=== PATIENT | female | born 1970 ===

== ENCOUNTER 2017-03-03 13:59 | Emergency (ER) | payer MEDICAID ==
[2017-03-03 14:09] VITALS: BP 145/64; PULSE 90; RESP 16; TEMP 98.5; O2SAT 100
[2017-03-03] MEDS ORDERED: Oxycodone/Acetaminophen 5/325 mg Tab PO STA (14:21)
--- NOTE | 2017-03-03 14:40 | ED PDOC ---
HPI: Dental Pain/Injury Time Seen by Provider: 03/03/17 14:15 Chief Complaint (Nursing): Dental Pain Chief Complaint (Provider): Dental Pain History Per: Patient History/Exam Limitations: no limitations Onset/Duration Of Symptoms: Days (x 2-3 months) Current Symptoms Are (Timing): Still Present Additional Complaint(s): Tati Glass is a 46-year-old female who presents to the emergency department complaining of right lower dental pain, ongoing for the past few months but worsened recently. Patient attributes her pain to a right lower molar that is decaying. Patient denies fever and chills. She has an appointment next month with an oral surgeon to remove the tooth. Patient has been taking Motrin without relief. PMD: Jodi Chandler MD Past Medical History Reviewed: Historical Data, Nursing Documentation, Vital Signs Vital Signs: Last Vital Signs Temp 98.5 F 03/03/17 14:06 Pulse 90 03/03/17 14:06 Resp 16 03/03/17 14:06 BP 145/64 03/03/17 14:06 Pulse Ox 100 03/03/17 14:06 - Medical History PMH: Depression, HTN (not on meds), Malignancy (ovarian CA) - Surgical History Surgical History: - Family History Family History: States: Unknown Family Hx - Immunization History Hx Tetanus Toxoid Vaccination: No Hx Influenza Vaccination: No Hx Pneumococcal Vaccination: No - Home Medications Home Medications: Ambulatory Orders Medication Instructions Recorded Ibuprofen [Advil] 800 mg PO 03/15/13 Acetaminophen with Codeine 2 tab PO Q4H PRN #22 tab 06/16/15 [Tylenol with Codeine No. 3 300 mg-30 mg] Ibuprofen 600 mg PO Q8H PRN #60 tab 06/16/15 Ondansetron [Zofran] 4 mg PO Q8H PRN #30 tab 06/16/15 Clindamycin [Cleocin] 300 mg PO TID #30 cap 09/12/15 oxyCODONE/Acetaminophen [Percocet 1 ea PO Q6H PRN #12 tab 09/12/15 5/325 mg Tab] Acetaminophen with Codeine 1 tab PO Q6 #6 tab 09/24/15 [Acetaminophen and Codeine Phosphate 300 mg-30] Amoxicillin/Clavulanate [Augmentin 1 tab PO Q12 #13 tab 03/06/16 875 MG-125 MG] Oxycodone HCl/Acetaminophen 1 tab PO Q6 PRN #10 tab 03/06/16 [Percocet 325 mg-5 mg] Penicillin VK [Pen-Vee K] 500 mg PO BID #20 tab 04/30/16 oxyCODONE/Acetaminophen [Percocet 1 ea PO Q8H PRN #10 tab 04/30/16 5/325 mg Tab] Naproxen [Naprosyn] 500 mg PO BID PRN #30 tab 06/30/16 Ondansetron ODT [Zofran ODT] 4 mg PO TID #21 odt 06/30/16 Amoxicillin/Clavulanate [Augmentin 1 tab PO BID #20 tab 03/03/17 875 MG-125 MG] oxyCODONE/Acetaminophen [Percocet 1 ea PO Q6H PRN #15 tab 03/03/17 5/325 mg Tab] - Allergies Allergies/Adverse Reactions: Allergies Allergy/AdvReac Type Severity Reaction Status Date / Time No Known Allergies Allergy Verified 03/03/17 14:06 Review of Systems ROS Statement: Except As Marked, All Systems Reviewed And Found Negative Constitutional: Negative for: Fever, Chills ENT: Positive for: Mouth Pain (Right lower dental pain) Physical Exam - Reviewed Nursing Documentation Reviewed: Yes Vital Signs Reviewed: Yes - Physical Exam Appears: Positive for: Non-toxic, No Acute Distress Head Exam: Positive for: ATRAUMATIC, NORMAL INSPECTION, NORMOCEPHALIC Skin: Positive for: Normal Color, Warm, Dry Eye Exam: Positive for: Normal appearance ENT: Positive for: Other (Gums normal. No abscess formation. Partial eruption of left lower wisdom tooth with moderate to severe decay) Neck: Positive for: Normal, Painless ROM, Supple Back: Positive for: Normal Inspection. Negative for: Vertebral Tenderness Extremity: Positive for: Normal ROM. Negative for: Deformity Neurologic/Psych: Positive for: Alert, Oriented - ECG O2 Sat by Pulse Oximetry: 100 (RA) Pulse Ox Interpretation: Normal Medical Decision Making Medical Decision Making: Time: 14:21 Initial Impression: Dental pain Initial Plan: --Oxycodone [5/325 mg] 1 tab PO Scribe Attestation: Documented by Priya Osman, acting as a scribe for Pastora Huber PA-C Provider Scribe Attestation: All medical record entries made by the Scribe were at my direction and personally dictated by me. I have reviewed the chart and agree that the record accurately reflects my personal performance of the history, physical exam, medical decision making, and the department course for this patient. I have also personally directed, reviewed, and agree with the discharge instructions and disposition. Disposition - Clinical Impression Clinical Impression: Dental caries - Disposition Disposition Time: 14:58 Condition: STABLE Prescriptions: Amoxicillin/Clavulanate [Augmentin 875 MG-125 MG] 1 tab PO BID #20 tab oxyCODONE/Acetaminophen [Percocet 5/325 mg Tab] 1 ea PO Q6H PRN #15 tab PRN Reason: Pain, Severe (8-10) Instructions: Dental Caries (ED)
[2017-03-03] MEDS ORDERED: Oxycodone/Acetaminophen 5/325 mg Tab ONE (14:42)
== END 2017-03-03 15:00 | disposition home or self-care (01) ==
LOC: H.ER 13:59
DX: K02.9 Dental caries, unspecified (principal); F32.9 Major depressive disorder, single episode, unspecified; I10 Essential (primary) hypertension

== ENCOUNTER 2017-04-04 11:44 | Emergency (ER) | payer MEDICAID ==
[2017-04-04 12:23] VITALS: BP 112/80; PULSE 106; RESP 16; TEMP 98; O2SAT 98
--- NOTE | 2017-04-04 12:56 | ED PDOC ---
HPI: General Adult Time Seen by Provider: 04/04/17 12:06 Chief Complaint (Nursing): Female Genitourinary History Per: Patient Additional Complaint(s): Pt. states this morning she woke up with vaginal pain, discharge, and dysuria. Pt. states 2 weeks ago she had a cervical biopsy done by Dr. Granger, her OBGYN, without any complications. Further states she is sexually active with 1 partner and participates in only unprotected sex. Denies fever, N/V/D, dyspareunia, hx of STD. Past Medical History Reviewed: Historical Data, Nursing Documentation, Vital Signs Vital Signs: Last Vital Signs Temp 98 F 04/04/17 12:19 Pulse 106 H 04/04/17 12:19 Resp 16 04/04/17 12:19 BP 112/80 04/04/17 12:19 Pulse Ox 98 04/04/17 12:59 - Medical History PMH: Depression, HTN (not on meds), Malignancy (ovarian CA) - Surgical History Surgical History: - Family History Family History: States: No Known Family Hx - Immunization History Hx Tetanus Toxoid Vaccination: No Hx Influenza Vaccination: No Hx Pneumococcal Vaccination: No - Home Medications Home Medications: Ambulatory Orders Medication Instructions Recorded Ibuprofen [Advil] 800 mg PO 03/15/13 Acetaminophen with Codeine 2 tab PO Q4H PRN #22 tab 06/16/15 [Tylenol with Codeine No. 3 300 mg-30 mg] Ibuprofen 600 mg PO Q8H PRN #60 tab 06/16/15 Ondansetron [Zofran] 4 mg PO Q8H PRN #30 tab 06/16/15 Clindamycin [Cleocin] 300 mg PO TID #30 cap 09/12/15 oxyCODONE/Acetaminophen [Percocet 1 ea PO Q6H PRN #12 tab 09/12/15 5/325 mg Tab] Acetaminophen with Codeine 1 tab PO Q6 #6 tab 09/24/15 [Acetaminophen and Codeine Phosphate 300 mg-30] Amoxicillin/Clavulanate [Augmentin 1 tab PO Q12 #13 tab 03/06/16 875 MG-125 MG] Oxycodone HCl/Acetaminophen 1 tab PO Q6 PRN #10 tab 03/06/16 [Percocet 325 mg-5 mg] Penicillin VK [Pen-Vee K] 500 mg PO BID #20 tab 04/30/16 oxyCODONE/Acetaminophen [Percocet 1 ea PO Q8H PRN #10 tab 04/30/16 5/325 mg Tab] Naproxen [Naprosyn] 500 mg PO BID PRN #30 tab 06/30/16 Ondansetron ODT [Zofran ODT] 4 mg PO TID #21 odt 06/30/16 Amoxicillin/Clavulanate [Augmentin 1 tab PO BID #20 tab 03/03/17 875 MG-125 MG] oxyCODONE/Acetaminophen [Percocet 1 ea PO Q6H PRN #15 tab 03/03/17 5/325 mg Tab] Metronidazole [Metrogel-Vaginal] 1 ea VG HS #1 bottle 04/04/17 - Allergies Allergies/Adverse Reactions: Allergies Allergy/AdvReac Type Severity Reaction Status Date / Time No Known Allergies Allergy Verified 03/03/17 14:06 Review of Systems ROS Statement: Except As Marked, All Systems Reviewed And Found Negative Genitourinary Female: Positive for: Dysuria, Vaginal Discharge Physical Exam - Physical Exam Appears: Positive for: Well, Non-toxic, No Acute Distress Skin: Positive for: Normal Color, Warm. Negative for: Rash Gastrointestinal/Abdominal: Positive for: Normal Exam, Bowel Sounds, Soft. Negative for: Tenderness Pelvic Exam: Positive for: External Exam Normal, Bimanual Exam Normal, No Cerv. Motion Tender, Discharge (creamy white ). Negative for: Active Bleeding, Cervicitis, Lesions, Mass, Tender W/Cervical Motion, Tender Adnexa, Tender Uterus, Ulcers Back: Positive for: Normal Inspection. Negative for: L CVA Tenderness, R CVA Tenderness - Laboratory Results Urine POC: Negative Urine dip results: Positive for: Leukocyte Esterase (small). Negative for: Blood, Nitrate, Ketones, Glucose, Bilirubin, Protein - ECG O2 Sat by Pulse Oximetry: 98 - Progress ED Course And Treament: Case d/w Dr. Granger, who agrees with care and requests that pt. to call her office tomorrow. Rocephin 1gm IV, zithromax 1000mg PO given. Disposition - Clinical Impression Clinical Impression: Bacterial vaginosis - Patient ED Disposition Is Patient to be Admitted: No - Disposition Referrals: Radha Chester MD [Staff Provider] - Disposition: Routine/Home Disposition Time: 14:01 Condition: STABLE Additional Instructions: CALL DR. GRANGER'S OFFICE TOMORROW WITHOUT FAIL. Prescriptions: Metronidazole [Metrogel-Vaginal] 1 ea VG HS #1 bottle Instructions: Vaginitis (ED) Forms: [employer] (Mauritanian)
[2017-04-04 13:33] LABS: SQUAMOUS EPITHIAL 10 /hpf (0-5); URINE BILIRUBIN NEGATIVE (NEGATIVE); URINE BLOOD NEGATIVE (NEGATIVE); URINE CLARITY CLOUDY (Clear); URINE COLOR YELLOW (YELLOW); URINE GLUCOSE (UA) NEG (Normal); URINE LEUKOCYTE ESTERASE LARGE Leu/uL (Negative); URINE NITRATE NEGATIVE (NEGATIVE); URINE PROTEIN NEGATIVE (NEGATIVE); URINE UROBILINOGEN 0.2-1.0 mg/dL (0.2-1.0)
[2017-04-04] MEDS ORDERED: cefTRIAXone (Rocephin) 1 gm Inj ONE (14:13)
== END 2017-04-04 16:00 | disposition home or self-care (01) ==
LOC: H.ER 11:44
DX: N76.0 Acute vaginitis (principal); I10 Essential (primary) hypertension; Z85.43 Personal history of malignant neoplasm of ovary; F17.210 Nicotine dependence, cigarettes, uncomplicated

== ENCOUNTER 2017-05-12 10:36 | Emergency (ER) | payer MEDICAID ==
[2017-05-12 11:01] VITALS: TEMP 98
--- NOTE | 2017-05-12 12:11 | ED PDOC ---
HPI: Dental Pain/Injury Time Seen by Provider: 05/12/17 10:50 Chief Complaint (Nursing): Dental Pain History Per: Patient Additional Complaint(s): Pt. states for the past 3 months she's been having dental pain. States she is suppose to have a removal of her wisdom teeth but has been unable to due to insurance problems. She has been taking OTC meds without relief. Denies fever, trauma. Past Medical History Reviewed: Historical Data, Nursing Documentation, Vital Signs Vital Signs: Last Vital Signs Temp 98 F 05/12/17 10:51 Pulse 72 05/12/17 10:51 Resp 16 05/12/17 10:51 BP 126/89 05/12/17 10:51 Pulse Ox 100 05/12/17 10:51 - Medical History PMH: Depression, HTN (not on meds), Malignancy (ovarian CA) - Surgical History Surgical History: - Family History Family History: States: No Known Family Hx - Immunization History Hx Tetanus Toxoid Vaccination: No Hx Influenza Vaccination: No Hx Pneumococcal Vaccination: No - Home Medications Home Medications: Ambulatory Orders Medication Instructions Recorded Ibuprofen [Advil] 800 mg PO 03/15/13 Acetaminophen with Codeine 2 tab PO Q4H PRN #22 tab 06/16/15 [Tylenol with Codeine No. 3 300 mg-30 mg] Ibuprofen 600 mg PO Q8H PRN #60 tab 06/16/15 Ondansetron [Zofran] 4 mg PO Q8H PRN #30 tab 06/16/15 Clindamycin [Cleocin] 300 mg PO TID #30 cap 09/12/15 oxyCODONE/Acetaminophen [Percocet 1 ea PO Q6H PRN #12 tab 09/12/15 5/325 mg Tab] Acetaminophen with Codeine 1 tab PO Q6 #6 tab 09/24/15 [Acetaminophen and Codeine Phosphate 300 mg-30] Amoxicillin/Clavulanate [Augmentin 1 tab PO Q12 #13 tab 03/06/16 875 MG-125 MG] Oxycodone HCl/Acetaminophen 1 tab PO Q6 PRN #10 tab 03/06/16 [Percocet 325 mg-5 mg] Penicillin VK [Pen-Vee K] 500 mg PO BID #20 tab 04/30/16 oxyCODONE/Acetaminophen [Percocet 1 ea PO Q8H PRN #10 tab 04/30/16 5/325 mg Tab] Naproxen [Naprosyn] 500 mg PO BID PRN #30 tab 06/30/16 Ondansetron ODT [Zofran ODT] 4 mg PO TID #21 odt 06/30/16 Amoxicillin/Clavulanate [Augmentin 1 tab PO BID #20 tab 03/03/17 875 MG-125 MG] oxyCODONE/Acetaminophen [Percocet 1 ea PO Q6H PRN #15 tab 03/03/17 5/325 mg Tab] Metronidazole [Metrogel-Vaginal] 1 ea VG HS #1 bottle 04/04/17 Amoxicillin [Amoxil 500 mg Cap] 500 mg PO BID #20 cap 05/12/17 Meloxicam [Mobic] 1 - 2 tab PO DAILY PRN #15 tab 05/12/17 - Allergies Allergies/Adverse Reactions: Allergies Allergy/AdvReac Type Severity Reaction Status Date / Time No Known Allergies Allergy Verified 05/12/17 10:51 Review of Systems ROS Statement: Except As Marked, All Systems Reviewed And Found Negative Physical Exam - Physical Exam Appears: Positive for: Well, Non-toxic, No Acute Distress Skin: Positive for: Normal Color, Warm. Negative for: Rash Eye Exam: Positive for: Normal appearance ENT: Positive for: Other (poor dentition; no gingival swelling) - ECG O2 Sat by Pulse Oximetry: 100 - Progress ED Course And Treament: Toradol 15mg IM ordered. Disposition - Clinical Impression Clinical Impression: Toothache - Patient ED Disposition Is Patient to be Admitted: No - Disposition Disposition: Routine/Home Disposition Time: 12:14 Condition: STABLE Additional Instructions: Follow up with your dentist for further evaluation. Prescriptions: Amoxicillin [Amoxil 500 mg Cap] 500 mg PO BID #20 cap Meloxicam [Mobic] 1 - 2 tab PO DAILY PRN #15 tab PRN Reason: pain Instructions: Toothache (ED)
[2017-05-12 12:43] VITALS: BP 122/74; PULSE 70; RESP 18; O2SAT 98
== END 2017-05-12 12:43 | disposition home or self-care (01) ==
LOC: H.ER 10:36
DX: K08.89 Other specified disorders of teeth and supporting structures (principal); I10 Essential (primary) hypertension; F32.9 Major depressive disorder, single episode, unspecified
CPT/HCPCS: 81025; 96372; 99282; J1885

== ENCOUNTER 2017-06-20 10:57 | Emergency (ER) | payer MEDICAID ==
[2017-06-20 11:01] VITALS: BP 120/90; PULSE 101; RESP 16; TEMP 97.6; O2SAT 99
[2017-06-20 11:02] VITALS: BMI 25.6
--- NOTE | 2017-06-20 11:22 | ED PDOC ---
HPI: Dental Pain/Injury Time Seen by Provider: 06/20/17 11:00 Chief Complaint (Nursing): Dental Pain Chief Complaint (Provider): Toothache History Per: Patient Additional Complaint(s): 47 yo female, PMH of HTN, Depression and Cervical CA, presents to ED with complaints of 1 month of dental pain, worse past 3 days. Pt is being followed by a dentist, root canal scheduled for next month. Pt taking Motrin without relief. Pt can not get appointment for earlier in the month, was advised by staff to present to office and standby for cancellations. Past Medical History Reviewed: Nursing Documentation, Vital Signs Vital Signs: Last Vital Signs Temp 97.6 F 06/20/17 11:00 Pulse 101 H 06/20/17 11:00 Resp 16 06/20/17 11:00 BP 120/90 06/20/17 11:00 Pulse Ox 99 06/20/17 11:00 - Medical History PMH: Depression, HTN (not on meds), Malignancy (ovarian CA) - Surgical History Surgical History: - Family History Family History: States: No Known Family Hx - Living Arrangements Living Arrangements: With Family - Social History Current smoker - smoking cessation education provided: No Alcohol: None Drugs: Denies - Immunization History Hx Tetanus Toxoid Vaccination: No Hx Influenza Vaccination: Yes Hx Pneumococcal Vaccination: No - Home Medications Home Medications: Ambulatory Orders Medication Instructions Recorded Ibuprofen [Motrin] 600 mg PO Q6 #20 tab 06/20/17 Penicillin VK [Penicillin VK Tab] 500 mg PO BID 7 Days tab 06/20/17 oxyCODONE/Acetaminophen [Percocet 1 ea PO Q6 PRN #10 tab 06/20/17 5/325 mg Tab] - Allergies Allergies/Adverse Reactions: Allergies Allergy/AdvReac Type Severity Reaction Status Date / Time No Known Allergies Allergy Verified 06/20/17 11:03 Review of Systems ROS Statement: Except As Marked, All Systems Reviewed And Found Negative ENT: Positive for: Other (toothace) Physical Exam - Reviewed Nursing Documentation Reviewed: Yes Vital Signs Reviewed: Yes - Physical Exam Appears: Positive for: Well, Non-toxic, No Acute Distress Head Exam: Positive for: ATRAUMATIC, NORMAL INSPECTION, NORMOCEPHALIC Skin: Positive for: Normal Color, Warm, DRY Eye Exam: Positive for: EOMI, Normal appearance, PERRL ENT: Positive for: Other (dental pain to top 2nd and bottome 3rd molar, no surrounding edema or erythema to gumlines) Neck: Positive for: Normal, Painless ROM Cardiovascular/Chest: Positive for: Regular Rate, Rhythm Respiratory: Positive for: CNT, Normal Breath Sounds Gastrointestinal/Abdominal: Positive for: Normal Exam, Bowel Sounds, Soft Back: Positive for: Normal Inspection Extremity: Positive for: Normal ROM Neurologic/Psych: Positive for: Alert, Oriented - ECG O2 Sat by Pulse Oximetry: 99 Medical Decision Making Medical Decision Making: Medicated with Pcn VK and Percocet while in ED Pt doing well on re-eval, asking ot go home. Advised dental Follow up [facility] Disposition - Clinical Impression Clinical Impression: Toothache - Patient ED Disposition Is Patient to be Admitted: No - Disposition Disposition: Routine/Home Disposition Time: 12:30 Condition: STABLE Prescriptions: Ibuprofen [Motrin] 600 mg PO Q6 #20 tab oxyCODONE/Acetaminophen [Percocet 5/325 mg Tab] 1 ea PO Q6 PRN #10 tab PRN Reason: Pain, Severe (8-10) Penicillin VK [Penicillin VK Tab] 500 mg PO BID 7 Days tab Instructions: Toothache (ED) Forms: [employer] (Occitan)
[2017-06-20] MEDS ORDERED: Oxycodone/Acetaminophen 5/325 mg Tab PO STA (11:59)
== END 2017-06-20 13:20 | disposition home or self-care (01) ==
LOC: H.ER 10:57
DX: K08.89 Other specified disorders of teeth and supporting structures (principal); F32.9 Major depressive disorder, single episode, unspecified; I10 Essential (primary) hypertension; Z85.41 Personal history of malignant neoplasm of cervix uteri